=== PATIENT | female | born 1980 ===

== ENCOUNTER 2022-09-08 08:06 | Emergency (ER) | payer BC ==
[2022-09-08] MEDS ORDERED: Ketorolac 30 MG/ML SDV IVPUSH ONE (08:44)
[2022-09-08] MEDS ORDERED: Acetaminophen 325 MG Tab PO ONE (08:44)
[2022-09-08] MEDS ORDERED: Ondansetron 4 MG/2 ML SDV IVPUSH ONE (08:47)
[2022-09-08] MEDS ORDERED: Lidocaine 4% 1 each Patch TOP SCH (09:00)
[2022-09-08] MEDS ORDERED: Lactated Ringers 1,000 ML IV SCH (09:00)
[2022-09-08 09:16] LABS: BASOPHILS PERCENT AUTO 0.2 % (0.0-1.5); EOSINOPHILS ABSOLUTE AUTO 0.1 K/uL (0.0-0.7); EOSINOPHILS PERCENT AUTO 0.8 % (0.0-7.0); HEMOGLOBIN 13.3 g/dL (12.0-16.0); LYMPHOCYTES PERCENT AUTO 8.1 % (16.0-40.0); MEAN CORPUSCULAR HEMOGLOBIN 28.4 pg (27.0-32.0); MEAN CORPUSCULAR HGB CONC 33.3 g/dL (31.0-37.0); MEAN CORPUSCULAR VOLUME 85.5 fL (80.0-98.0); MONOCYTES ABSOLUTE AUTO 0.9 K/uL (0.0-0.8); MONOCYTES PERCENT AUTO 7.6 % (0.0-15.0); NEUTROPHILS PERCENT AUTO 83.3 % (48.0-80.0); NRBC ABSOLUTE 0 K/uL; PLATELET COUNT,PLT 338 K/uL (150-400); RED BLOOD CELL COUNT 4.68 M/uL (4.30-5.90); WHITE BLOOD CELL COUNT,WBC 12.03 K/uL (4.0-11.0)
[2022-09-08 09:39] LABS: A/G RATIO 0.7 (0.9-1.6); ALANINE AMINOTRANSFERASE,ALT 27 IU/L (14-63); ALBUMIN 3.7 g/dL (3.4-5.0); ALKALINE PHOSPHATASE 102 U/L (46-116); ASPARTATE AMNIOTRANSFERASE,AST 19 IU/L (15-37); BILIRUBIN TOTAL 0.7 mg/dL (0.2-1.0); BLOOD UREA NITROGEN,BUN 12 mg/dL (7.0-18.0); CALCIUM 9.7 mg/dL (8.5-10.1); CARBON DIOXIDE,CO2 27.1 mmol/L (21.0-32.0); CHLORIDE,CL 97 mmol/L (98-107); GLUCOSE RANDOM 143 mg/dL (74-106); LIPASE 54 U/L (73-393); POTASSIUM,K 2.9 mmol/L (3.5-5.1); PROTEIN TOTAL,TP 9.2 g/dL (6.4-8.2); SODIUM,NA 138 mmol/L (136-145)
[2022-09-08 09:41] LABS: ESTIMATED GFR 72 mL/min (>60)
[2022-09-08] MEDS ORDERED: Potassium Chloride 20 MEQ Tab.ER PO ONE (09:45)
[2022-09-08 10:07] LABS: APPEARANCE,URINE CLEAR; COLOR,URINE DARK YELLOW; GLUCOSE,URINE NEGATIVE (NEGATIVE); KETONES,URINE 40 mg/dL (NEGATIVE); LEUKOCYTE ESTERASE,URINE NEGATIVE (NEGATIVE); NITRITE,URINE NEGATIVE (NEGATIVE); OCCULT BLOOD,URINE MODERATE (NEGATIVE); PH,URINE 6.5 (5.0-8.0); PROTEIN,URINE 100 mg/dL (NEGATIVE)
[2022-09-08 10:10] LABS: BILIRUBIN,URINE MODERATE (NEGATIVE)
[2022-09-08] MEDS ORDERED: Iopamidol 755 MG/ML 500 ML Multipack Bottle IVPUSH ONE (10:13)
[2022-09-08 10:15] LABS: BACTERIA,URINE FEW (NEGATIVE); EPITHELIAL CELLS,URINE RARE (NONE-FEW); WBC,URINE 0-3 (0-5/HPF)
[2022-09-08 10:16] LABS: MUCUS,URINE LIGHT (NONE-MOD)
== END 2022-09-08 13:37 | disposition home or self-care (01) ==
LOC: MW.ED 08:06
DX: R10.32 Left lower quadrant pain (principal); R19.04 Left lower quadrant abdominal swelling, mass and lump; J45.909 Unspecified asthma, uncomplicated
CPT/HCPCS: 36415; 74177; 76856; 80053; 81001; 83690; 84703; 85025; 93005; 96361; 96374; 96375; 99284; A9270; J1885; J2405; J7120; Q9967; 93010